=== PATIENT | female | born 1945 | race Caucasian/White ===

== ENCOUNTER → 2018-09-07 | Outpatient (CLI) | payer MEDICARE, OTHER | END | disposition home or self-care (01) | LOC: LAB 11:14 | PROVIDERS: ATTEND Specialist | DX: D50.0 Iron deficiency anemia secondary to blood loss (chronic) (principal) | CPT/HCPCS: 36415; 85018 ==

== ENCOUNTER → 2021-04-23 | Outpatient (CLI) | payer MEDICARE, OTHER ==
--- NOTE | 2021-04-23 17:36 | RAD ---
Chest, PA and Lateral: Technique: PA and lateral views of the chest were obtained. History: Dry cough. Comparison: None. Findings: The heart and pulmonary vasculature appear within normal limits. Small lobulated density projecting in the left lung base abutting the left hemidiaphragm could be lobulated portion of the left hemidiap hragm or lung mass. The pleural margins are clear. Impression: Small lobulated density projecting in the left lung base could be lobulated portion of the left hemid iaphragm or lung mass. Electronically signed by: Aris Sanchez MD (04/23/2021 5:33 PM) [id number]
[2021-04-23 18:27] LABS: BASO % 1 % (0-3); EOS # 0.1 x10^3/uL (0.0-0.7); EOS % 3 % (0-3); HEMOGLOBIN 11.1 g/dL (12.0-15.5); LYMPH # 1.2 x10^3/uL (1.0-4.8); LYMPH % 30 % (24-48); MEAN CORPUSCULAR HEMOGLOBIN 26 pg (25-35); MEAN CORPUSCULAR HGB CONC 32 g/dL (31-37); MEAN CORPUSCULAR VOLUME 83 fL (79-100); MONO # 0.4 x10^3/uL (0.0-1.1); MONO % 10 % (0-9); NEUT # 2.2 x10^3uL (1.8-7.7); NEUT % 56 % (31-73); PLATELET COUNT 207 x10^3/uL (140-400); RED BLOOD COUNT 4.21 x10^6/uL (3.50-5.40); RED CELL DISTRIBUTION WIDTH 17.9 % (11.5-14.5); WHITE BLOOD COUNT 3.9 x10^3/uL (4.0-11.0)
[2021-04-23 18:54] LABS: CALCIUM 9.2 mg/dL (8.5-10.1); CREATININE 1.2 mg/dL (0.6-1.0); GFR 43.9; POTASSIUM 4.2 mmol/L (3.5-5.1)
== END ==
LOC: RAD 17:05
PROVIDERS: ATTEND Specialist
DX: J98.4 Other disorders of lung (principal)
CPT/HCPCS: 36415; 71046; 80048; 85025

== ENCOUNTER → 2021-04-30 | Outpatient (CLI) | payer MEDICARE, OTHER ==
--- NOTE | 2021-05-02 10:10 | RAD ---
CT scan of the chest without contrast 04/30/2021 CLINICAL HISTORY: Cough. Lobulated density seen in the left lung base and recent chest radiograph. TECHNIQUE: Unenhanced, contiguous, 0.625 mm axial sections were obtained through the chest and upper abdomen. 3 mm reconstructed sagittal, axial and coronal images were obtained. FINDINGS: Comparison is made to patient's PA and lateral chest radiographs dated 04/23/2021. A left subclavian Iylagc-w-Rxzs type catheter is unchanged in position. Atherosclerotic calcification of the thoracic aorta is seen. The thoracic aorta is mildly tortuous but tapers normally. The heart is normal in size. Likely reactive mediastinal lymph nodes are seen which measure 5 mm to 1.1 cm in s ize. Focal herniation of fat through the posterior medial aspect of the left hemidiaphragm is seen this me asures 4.5 cm in size. It accounts for the lobulated opacity seen on patient's chest radiograph. No pulmonary mass is seen. A 6 mm calcified granuloma seen involving the left upper lobe. No area of consolidation is seen. No p neumothorax or pleural effusion is noted. Images through the upper abdomen demonstrate a rounded low-attenuation lesions involving both kidneys which measure 5 mm to 2.6 cm in size. These likely represent cysts. No further imaging evaluation is recommended. Atherosclerotic calcification of the abdominal aorta is seen. Very mild S-shaped curvature of the thoracolumbar spine is seen. Degenerative changes involving the t horacic spine and both shoulders. Patient is post kyphoplasty type procedure for compression fracture s involving the T12 and L1 vertebral bodies. Old appearing compression fractures of the L2 and L3 jess tebral bodies are seen. IMPRESSION: Focal herniation of fat 2 the posterior medial aspect left hemidiaphragm is seen measurin g 4.5 cm in size. This corresponds to the abnormality seen on the patient's chest radiograph. No abno rmal soft tissue mass is seen. No acute abnormality is noted. Electronically signed by: Clint Camargo MD (05/02/2021 10:07 AM) [id number]
== END ==
LOC: CT 14:45
PROVIDERS: ATTEND Specialist
DX: R91.8 Other nonspecific abnormal finding of lung field (principal); R05 Cough
CPT/HCPCS: 71250